=== PATIENT | female | born 2000 | race Caucasian/White ===

== ENCOUNTER 2023-06-09 12:58 | Emergency (ER) | payer MEDICAID ==
[~2023-06-09] VITALS: Ht 160 cm; Wt 49.4 kg
[2023-06-09 13:00] VITALS: BP_SYST 126; PULSE 102; RESP 17; TEMP 98.3; O2SAT 97
[2023-06-09] MEDS ORDERED: TOBR3.5O25 OP (13:36)
[2023-06-09 14:03] VITALS: BP_SYST 126; PULSE 102; RESP 17; TEMP 98.3; O2SAT 97
== END 2023-06-09 14:02 | disposition home or self-care (01) ==
LOC: SED 12:58
DX: H02.844 Edema of left upper eyelid (principal)
CPT/HCPCS: 99283

== ENCOUNTER 2023-09-30 16:04 | Emergency (ER) | payer MEDICAID ==
[~2023-09-30] VITALS: Ht 160 cm; Wt 54.4 kg
[~2023-09-30 16:04] MED LIST: TOBR3.5O25 OP
[2023-09-30 16:08] VITALS: BP_SYST 127; PULSE 127; RESP 16; TEMP 98.3; O2SAT 97
[2023-09-30 16:46] LABS: BILIRUBIN,URINE NEGATIVE (NEGATIVE); BLOOD, URINE NEGATIVE (NEGATIVE); CLARITY/URINE CLEAR (CLEAR); COLOR,URINE YELLOW (YELLOW); GLUCOSE,URINE 3+ (NEGATIVE); KETONES,URINE 2+ (NEGATIVE); NITRITE, URINE POSITIVE (NEGATIVE); PROTEIN URINE NEGATIVE (NEGATIVE); UROBILINOGEN,URINE 0.2 (0.2-1.0)
[2023-09-30] MEDS: PANTOPRAZOLE SODIUM 40 MG/VIAL (PROTONIX) IVP ONE (16:52)
[2023-09-30] MEDS: NACL 0.9% 1,000 ML IV ONE (16:52)
[2023-09-30] MEDS: DIPHENHYDRAMINE INJ 50 MG/ML VIAL IVP ONE (16:52)
[2023-09-30] MEDS: METOCLOPRAMIDE HCL 10 MG/2 ML VIAL IVP ONE (16:52)
[2023-09-30 16:55] LABS: LEUKOCYTE ESTERASE ,URINE 1+ (NEGATIVE)
[2023-09-30 16:56] LABS: BACTERIA,URINE FEW /HPF (None Seen); MUCUS,URINE None Seen /LPF (None Seen); RBC,URINE NONE SEEN /HPF (0-3)
[2023-09-30 17:09] LABS: BASOPHILS # (AUTO) 0.1 K/uL (0.0-0.2); BASOPHILS % (AUTO) 0.9 % (0.0-2.0); EOSINOPHILS # (AUTO) 0.1 K/uL (0.0-0.4); EOSINOPHILS % (AUTO) 0.9 % (0.0-4.0); HEMATOCRIT 41.4 % (36-48); HEMOGLOBIN 14.2 g/dL (12.0-16.0); LYMPHOCYTES # (AUTO) 2.5 K/uL (1.0-5.5); LYMPHOCYTES % (AUTO) 18.6 % (20.5-51.5); MEAN CORPUSCULAR HEMOGLOBIN 31 pg (27-31); MEAN CORPUSCULAR HGB CONC 34 % (32-36); MEAN CORPUSCULAR VOLUME 90 fL (79.0-98.0); MONOCYTES # (AUTO) 0.8 K/uL (0.0-1.0); MONOCYTES % (AUTO) 5.6 % (1.7-9.3); NEUTROPHILS # (AUTO) 10.1 K/uL (1.8-7.7); PLATELET COUNT (AUTO) 336 K/uL (130-430); RED BLOOD CELL COUNT(AUTO) 4.59 MIL/uL (4.2-6.2); RED CELL DISTRIBUTION WIDTH 13.5 % (9.0-15.0); WHITE BLOOD COUNT (AUTO) 13.6 K/uL (4.8-10.8)
[2023-09-30 17:16] LABS: SERUM HCG (QUALITATIVE) NEGATIVE (NEGATIVE)
[2023-09-30 17:22] LABS: ALBUMIN 3.3 g/dL (3.4-4.8); BILIRUBIN,DIRECT 0.1 mg/dL (0.0-0.3); CALCIUM 8.8 mg/dL (8.4-11.0); CREATININE 0.8 mg/dL (0.55-1.30); POTASSIUM 4.1 mmol/L (3.5-5.1); TOTAL BILIRUBIN 0.6 mg/dL (0.0-1.0); TOTAL PROTEIN, SERUM 7.4 g/dL (6.4-8.3)
[2023-09-30] MEDS: INSULIN REGULAR, HUMAN 10 UNITS/0.1 ML, 3 ML VIAL IVP ONE ×2 (17:38→18:32)
[2023-09-30] MEDS ORDERED: cefTRIAXone 1 GM VIAL ONE (18:27)
[2023-09-30] MEDS: cefTRIAXone 1 GM in D5W 50 ML IV ONE (18:30)
[2023-09-30] MEDS ORDERED: PRO40 PO (18:46)
[2023-09-30] MEDS ORDERED: ONDA-8 TL (18:46)
[2023-09-30] MEDS ORDERED: CEPH-548 PO (18:46)
[2023-09-30 18:54] VITALS: BP_SYST 128; PULSE 96; RESP 20; TEMP 98.3; O2SAT 98
== END 2023-09-30 18:36 | disposition left against medical advice (07) ==
LOC: SED 16:04
DX: E11.65 Type 2 diabetes mellitus with hyperglycemia (principal); N39.0 Urinary tract infection, site not specified; R10.13 Epigastric pain; K21.9 Gastro-esophageal reflux disease without esophagitis; R11.10 Vomiting, unspecified; Z79.899 Other long term (current) drug therapy
CPT/HCPCS: 99284; 96365; 96375; 96361; 80076; 80048; 81001; 84703; 83690; 85025; 87040; 87086; 87186; 36415; 96376; 82948; 83605; J0696; J1200; J2765; J2470; J7030; J1815; 81000; 81015